=== PATIENT | female | born 1950 | race Caucasian/White ===

== ENCOUNTER 2017-01-14 17:00 | Observation (INO) | payer MEDICARE ==
[~2017-01-14] VITALS: Ht 167.6 cm; Wt 71.5 kg
[2017-01-14] MEDS ORDERED: Neostigmine 1 mg/mL 10 mL Inj ONE (18:05)
[2017-01-14] MEDS ORDERED: Glycopyrrolate 0.2 MG/ML 1mL Inj ONE (18:05)
[2017-01-14] MEDS ORDERED: Rocuronium 10 mg/mL 5 mL Inj ONE (18:05)
[2017-01-14] MEDS ORDERED: Dexamethasone 10 mg/mL Inj ONE (18:05)
[2017-01-14] MEDS ORDERED: MetoCLOpramide 5 mg/mL 2 mL Inj ONE (18:05)
[2017-01-14] MEDS ORDERED: Propofol 10,000 mCg/mL 20 mL Inj ONE (18:05)
[2017-01-14] MEDS ORDERED: fentaNYL-PF 50 mCg/mL 2 mL Inj ONE (18:05)
[2017-01-14] MEDS ORDERED: MetoCLOpramide 5 mg/mL 2 mL Inj IVPUSH PRN ×2 (18:25→23:00)
[2017-01-14] MEDS ORDERED: Ondansetron 2 mg/mL 2 mL Inj IVPUSH PRN ×2 (18:25→23:00)
[2017-01-14] MEDS ORDERED: Ampicillin-Sulbactam Inj 3,000 MG in 0.9% Sodium Chloride 100 ML IV ONE (18:25)
[2017-01-14] MEDS ORDERED: CITA10TA14 PO (18:35)
[2017-01-14] MEDS ORDERED: KELP1TAB2 PO (18:35)
[2017-01-14] MEDS ORDERED: OMEP20TA24 PO (18:35)
[2017-01-14] MEDS ORDERED: DIPH25CA6 PO (18:35)
[2017-01-14] MEDS ORDERED: CALCIUM (18:35)
[2017-01-14] MEDS ORDERED: MULT-1018 PO (18:35)
[2017-01-14] MEDS ORDERED: metroNIDAZOLE Inj 500 MG in IV Premix 1 EACH IV ONE (18:50)
[2017-01-14] MEDS ORDERED: levoFLOXacin Inj 750 MG in IV Premix 1 EACH IV ONE (18:50)
[2017-01-14] MEDS: HYDROmorphone 1 mg/mL Inj IVPUSH PRN ×2 (18:56→22:23)
[2017-01-14] MEDS: Dextrose 5% Lactated Ringer's 1,000 ML IV SCH (18:56)
--- NOTE | 2017-01-14 19:13 | HP ---
[address] [address] HISTORY AND PHYSICAL PATIENT: BHARGAV FOX : 1950 MR#: [id number] ADMIT: 01/14/2017 JOB ID: [id number] CHIEF COMPLAINT: Abdominal pain. HISTORY OF PRESENT ILLNESS: This patient is an otherwise healthy, 66-year-old woman who presents to Urgent Care today with increasing abdominal pain. Her pain began on Wednesday and at that time was periumbilical and associated with some mild abdominal bloating and nausea. Her nausea resolved and her pain gradually migrated over the next several days down to her right lower quadrant. Her pain today became intolerable. She denies fevers or chills. She denies diarrhea or dysuria. Her only other complaint is that she has been urinating frequently. She was seen in Urgent Care by Dalton Chavarria. She had a white blood cell count of 15. The remainder of her chemistry was normal. She had a CT scan of the abdomen and pelvis which showed findings consistent with nonperforated acute appendicitis with a dilated appendix to 1.3 cm with marked periappendiceal fat stranding. There was no abscess or phlegmon. Interestingly, she reports several episodes over the past year where she had similar pain, but that did not intensify quite as badly, and resolved without intervention. She wonders if she could have had other prior episodes of subclinical appendicitis. PAST MEDICAL HISTORY: GERD, depression. PAST SURGICAL HISTORY: Varicose vein surgery, nose surgery. MEDICATIONS: Include citalopram, omeprazole, multivitamin. ALLERGIES: 1. BEE STINGS. 2. AMOXICILLIN. 3. ASPIRIN. 4. IBUPROFEN. SOCIAL HISTORY: She is a nonsmoker. She drinks two glasses of wine per night. She denies illicit drug use. She is . FAMILY HISTORY: No family history of inflammatory bowel disease. REVIEW OF SYSTEMS: A 10-point review of systems is otherwise negative except as described in History of Present Illness. Specifically no history of blood in the stool or unplanned weight loss. PHYSICAL EXAMINATION: Body mass index 24.6. Vital signs are not yet recorded. General: She is resting in bed, in mild distress from pain. HEENT: Sclerae are anicteric. Mucous membranes are moist. Neck: No lymphadenopathy. Chest is clear to auscultation. Heart: Regular rate and rhythm. No murmurs. Abdomen is mildly distended, soft, but with significant tenderness to palpation in the right lower quadrant with positive rebound tenderness. There are no hernias. There are no palpable masses. Extremities: No edema. Neuro: No deficits. Psych: Affect is appropriate. LABORATORY DATA: Labs as in HPI. IMAGING: As in HPI. ASSESSMENT AND PLAN: A 66-year-old woman with acute nonperforated appendicitis. We have reviewed the pathophysiology of appendicitis. We have discussed nonoperative management versus laparoscopic appendectomy. She favors appendectomy. Technical aspects of surgery were discussed. Risks of surgery were discussed, including, but not limited to, bleeding, infection, conversion to open surgery, injury to other structures. She understands the postoperative course that will be dictated by the findings at the time of surgery. For now she will be placed on broad-spectrum antibiotics. Because of her amoxicillin allergy, she will be given levofloxacin and Flagyl. She will be kept n.p.o. until surgery which will be sometime tonight.
[2017-01-14 19:27] VITALS: BP 157/77; PULSE 53; RESP 16; O2SAT 97
[2017-01-14] MEDS ORDERED: 0.9% Sodium Chloride 250 ML ONE (19:40)
[2017-01-14] MEDS ORDERED: Lactated Ringer's 1,000 ML IV SCH (22:56)
[2017-01-14] MEDS ORDERED: Lactated Ringer's 500 ML IV PRN (22:56)
--- NOTE | 2017-01-14 22:56 | PCM.HPANE ---
Patient Data Surgeon Admitting Provider:Ubaldo Brown MD Attending Provider:Ubaldo Brown MD Primary Care Physician:Ubaldo Montgomery MD Other Provider:Alba Martinez Anesthesia Reason for Visit Acute Appendicitis Ht/WT & BMI Height (Feet): 5 Height (Inches): 6.00 Weight (Kilograms): 69.000 Body Mass Index 24.45 Allergies Coded Allergies: amoxicillin (Verified Allergy, Severe, Diarrhea, 01/14/17) aspirin (Verified Allergy, Severe, Rash, 01/14/17) SWELLING ibuprofen (Verified Allergy, Severe, Anaphylaxis, 01/14/17) SOB, SWELLING Uncoded Allergies: BEE STING (Allergy, Severe, Anaphylaxis, 01/14/17) SWELLING Past Anesthesia History Anesthesia History: Denies:: Anesthesia Reactions Diabetes History Hx Diabetes?: No Current Bedside Blood Glucose: 116 MRSA MRSA: No Medications Hypertension Medication: No Home Meds Incl Beta Alek: No Reported Medications Omeprazole Magnesium (Prilosec Otc)20 Mg Tablet.dr20 Mg PO DAILY PRN For Epigastric Distress #1 PKG Ref 0 01/14/17 Multivitamin (Multi Vitamin Daily)1 Each Tablet1 Tab PO DAILY PRN SUPPLEMENT 30 Days Ref 0 01/14/17 Kelp 1 Each Tablet1 Tab PO DAILY SUPPLEMENT 01/14/17 Citalopram Hydrobromide (Celexa)10 Mg [id number] Mg PO DAILY DEPRESSION Ref 0 01/14/17 [Calcium] No Conflict Check 01/14/17 diphenhydrAMINE HCl (Benadryl)25 Mg [id number] Mg PO Q4-6 HRS. PRN Insomnia Ref 0 01/14/17 History History of ENT Problems?: Yes HEENT History: Positive for:: Cataracts Denies:: Dysphagia Glaucoma Denture Type: None Teeth Condition: Within Normal Limits Hx of Heart Problems?: No Cardiovascular History: Denies:: AICD Abdominal Aortic Aneurism Atrial Fibrillation Cardiac Surgery Chest Pain Congestive Heart Failure Coronary Artery Disease Edema Heart Murmur Hypertension Irregular Heartbeat Pacemaker Peripheral Vascular Rheumatic Fever Thrombophlebitis Valvular Heart Disease Hx of Respiratory Problem?: No Respiratory History: Denies:: Asthma COPD Chest Surgery Cough Dyspnea Emphysema Hemoptysis Oxygen Administration Pneumonia Pulmonary Embolism Tuberculosis Use of C-PAP Machine Use of Inhalers / NEBS Hx Neurologic Problems?: No Hx of GI Problems?: Yes Hx of Problems?: Yes Genitourinary History: Positive for:: Kidney Stones Urinary Tract Infection Denies:: HX of Hemodialysis HX of Peritoneal Dialysis: No Female Hx: Denies:: Currently Endometriosis Pelvic Inflammatory Problems with Breasts? Hx Musculoskeletal Problems?: Yes Musculoskeletal History: Positive for:: Back Injury Denies:: Joint Replacement Musculoskeletal Trauma Hx of Psycho/Social Problems?: Yes Psycho Social History: Positive for:: Anxiety Hx Depression Denies:: Bipolar Disorder Suicide Attempt Hx Surgeries?: Yes (VEIN STRIPPING, NOSE FIXED) Hx Any Other Health Problems?: No Other History: Positive for:: Cancer (SKIN CANCER-3 SURGERIES ON HER FACE) Thyroid Disease (THYROID NODULES) Denies:: Hospitalization History Blood Transfusions: Positive for:: Accept Blood Products? Denies:: Blood Transfusions Hx Diabetes: NoBedside Blood Glucose: 116 Hx Alcohol Use: YesAlcoholic Drinks Per Day: A COUPLE OF GLASSES OF WINE EVERY NIGHTHx Substance Use: NoHave You Smoked inLast 12 mo: NoApprox How Many Cigarettes/day: 1 PACK/DAY Stop/Bang Treated for Sleep Apnea?: No Do You Have a CPAP Machine?: No S-Snoring: Do You Snore Loudly: No T-Tired: feel tired, fatigued: No O-Obsered: Observed not breath: No P-Blood Pressure: treated: Yes B- Body Mass Index > 35 kg/m2: No A- Age over 50: Yes N- Neck Large Circumference: No G- Gender Male: No SAGE Total Score: 1 SGAE Risk Assessment: Low Risk, <3 Yes Risk Assessment Category Category 1A: Patient has history of documented sleep apnea, and HAS NOT received any narcotic, sedative or anesthesia administration during this stay. Category 1B: Patient has history of documented sleep apnea, and HAS received any narcotic , sedative or anesthesia administration during this stay Category 2: Patient has SUSPECTED Obstructive Sleep Apnea, and HAS received any narcotic , sedative or anesthesia administration during this stay. Category 3: Patient has SUSPECTED Obstructive Sleep Apnea and HAS NOT received narcotic, sedative or anesthesia administration during this stay. Category 4: Outpatient in Procedural Areas with known sleep apnea or who screen positive for High Risk via the STOP/BANG questionnaire. Exam Exam Vital Signs Vital Signs Date Time Temp Pulse Resp B/P Pulse Ox O2 Delivery O2 Flow Rate FiO2 01/14/17 19:27 36.9 53 16 157/77 97 Room Air General Appearance: Oriented X3 HEENT/AIRWAY: MP 2 Lungs: Normal Air Movement Heart: Regular Rate/Rhythm Meds/Labs/Diagnostics Admission Meds Current Medications Dextrose/Lactated Ringer's 1,000 ml @ 100 mls/hr Q10H IV Last administered on 01/14/17 18:56; Start 01/14/17 at 18:25 Levofloxacin/ Dextrose 750 mg/ Premix 150 ml @ 100 mls/hr ONCE ONCE IV Last administered on 01/14/17 20:43; Start 01/14/17 at 18:50; Stop 01/14/17 at 20:19; Status DC Metronidazole/ Sodium Chloride 500 mg/Premix 100 ml @ 200 mls/hr ONCE ONCE IV Last administered on 01/14/17 19:37; Start 01/14/17 at 18:50; Stop 01/14/17 at 19:19; Status DC Sodium Chloride (Normal Saline) 250 ml @ ud STK-MED ONCE .ROUTE Last administered on 01/14/17 19:40; Start 01/14/17 at 19:40; Stop 01/14/17 at 19:41; Status DC Bedside Blood Glucose: 116 Plan Impression Patient chart reviewed, patient interviewed and anesthestic plan with risks, benefits, and alternatives discussed, and informed consent obtained. ASA Physical Status: ASA2 Mod Systemic Disease Anesthetic Plan: GA Bene/Risks/Altern/Consents: Yes HP Complete Prior to Induction: Yes Robert Pate MD Jan 14, 2017 22:56
[2017-01-14] MEDS ORDERED: EPHEDrine Sulfate 50 mg/mL Inj IVPUSH PRN (23:00)
[2017-01-14] MEDS ORDERED: HYDROmorphone 1 mg/mL Inj IVPUSH PRN (23:00)
[2017-01-14] MEDS ORDERED: Dexamethasone 4 mg/mL Inj IVPUSH PRN (23:00)
[2017-01-14] MEDS ORDERED: fentaNYL-PF 50 mCg/mL 2 mL Inj IVPUSH PRN (23:00)
[2017-01-14] MEDS ORDERED: Phenylephrine 10,000 mCg/mL Inj IVPUSH PRN (23:00)
[2017-01-14] MEDS ORDERED: Bupivacaine-MPF 0.5% W/EPI 30 mL Inj INFILTRATE ONE (23:37)
[2017-01-15] VITALS (12 sets, daily range): BP systolic 97–130; BP diastolic 47–89; PULSE 65–79; RESP 16–20; O2SAT 94–100
[2017-01-15] MEDS: Sodium Chloride LOK Flush 10 mL Syringe IVFLUSH SCH ×2 (00:30→08:26)
--- NOTE | 2017-01-15 00:32 | PCM.SURGOP ---
Surgical Operative Report Date of Service: Jan 15, 2017 Pre Operative Diagnosis Acute appendicitis Post Operative Diagnosis Acute suppurative appendicitis Procedure: Laparoscopic appendectomy Surgeon and Home Energy Auditor: Surgeon: Ubaldo Brown MD Assistants: Blake Junior MD PGY-3 Indication for Procedure 66-year-old woman who presented with abdominal pain since Wednesday which started at the umbilicus and migrated to the right lower quadrant. She was seen in urgent care where she had a white blood count of 15. A CT scan of the abdomen and pelvis showed a dilated appendix to 1.3 cm with periappendiceal fat stranding. On exam, she was markedly tender with rebound tenderness. After discussion of risks and benefits, she agreed to proceed with laparoscopic appendectomy. Findings: There was acute suppurative appendicitis with some slightly turbid fluid in the right lower quadrant, but no evidence of perforation. Procedure Details After smooth induction of general anesthesia, the patient was placed in the supine position with the left arm tucked. The abdomen was prepped and draped in wide sterile fashion. A procedural pause was performed according to the SCOAP checklist, and all were found to be in agreement. A curvilinear infraumbilical incision was made. Dissection was carried down with electrocautery until the midline fascia was incised vertically and the peritoneal cavity was entered without difficulty. Pneumoperitoneum was established. Two additional ports were placed under visualization. A 5 mm port was placed in the midline above the symphysis pubis, and a 12 mm port in the left lower quadrant, lateral to the inferior epigastric vessels. The patient was placed head down with the right side up. The small bowel was retracted. There was a small amount of slightly turbid fluid in the right lower quadrant. The appendix was visualized, which had some acute suppurative exudate. It was bluntly mobilized and retracted. A window was created at the base of the appendix in the mesoappendix. The appendiceal stump was then divided using an Endo TUYET stapler with a 45 mm blue load. The mesoappendix was divided with a vascular load. There was a small amount of bleeding from the mesoappendix after stapler firing, which was controlled with electrocautery. The appendix was placed into an Endo Catch bag. The right lower quadrant was irrigated and suctioned. The appendiceal stump was intact and the mesoappendix was hemostatic. The appendix was removed and passed off the field for permanent pathology. The 12 mm port was removed. The fascia of the 12 mm port site was closed using an inlet closure device with an 0 Vicryl suture. The remaining ports were removed under visualization and pneumoperitoneum was released. The fascia of the umbilical port site was closed with a simple 0 Vicryl suture. The skin incisions were closed using running 4-0 Monocryl subcutaneous stitches. Steri-Strips and sterile dressings were applied. At the end of the case all needle and sponge counts were correct 2. The patient was awakened from anesthesia without difficulty, and taken to the recovery room in satisfactory condition, having tolerated the procedure well. Complications There were no periprocedural complications identified. Surgical Specimen Removed: Yes Specimen sent to Pathology: Yes Surgical Specimen description: Appendix Anesthetic Plan: GA Grafts, Implants: None Output, Estimated Blood Loss: 50 Blood Administration during vincent: No Drains: None Catheters: None copies to: Ubaldo Montgomery MD, Joshua D MD Jan 15, 2017 00:32
--- NOTE | 2017-01-15 00:51 | PCM.ANEP1 ---
Post Anesthesia PACU Phase 1 Assessment Vital Signs Vital Signs Date Time Temp Pulse Resp B/P Pulse Ox O2 Delivery O2 Flow Rate FiO2 01/15/17 00:45 36.4 79 16 121/89 100 Simple Mask 8 01/14/17 19:27 36.9 53 16 157/77 97 Room Air Anesthetic Administered: GA Level of Alertness: Awake, talking Pain: No Pain Scale Score: 7 Nausea or Vomiting: No CV Function & Hydration Stable: Yes Airway Device: Oralpharangeal Airway Lungs: Normal Air Movement PACU Phase 2 Assessment Patient Instructions Provided: N/A Robert Pate MD Jan 15, 2017 00:51
[2017-01-15] MEDS: Dextrose 5% Lactated Ringer's 1,000 ML IV SCH (03:09)
[2017-01-15 05:36] LABS: BASOPHILS % (AUTO) 0 % (0-3); EOSINOPHILS % (AUTO) 0 % (0-5); MONOCYTES % (AUTO) 1.4 % (4-12); Mean Corpuscular Hemoglobin 30.6 pg (27.0-35.0); Mean Corpuscular Volume 92.8 fL (81-100); NEUTROPHILS % (AUTO) 93.6 % (40-74); Platelet Count 239 bil/L (150-400)
--- NOTE | 2017-01-15 10:10 | PCM.DISURG ---
Surgical Discharge Instruction Date of Service Jan 15, 2017 Dates of Hospitalization Date of Hospital Admission Jan 14, 2017 at 18:04 Providers Admitting Physician: Ubaldo Brown MD Primary Care Physician: Ubaldo Montgomery MD Attending Physician: Ubaldo Brown MD Discharge Diagnosis Discharge Diagnosis Primary Diagnosis: 1. Acute suppurative appendicitis 2. Status post Laparoscopic appendectomy Other Medical & Surgical History: 1. GERD 2. Depression. 3. Varicose vein surgery 4. Nose surgery. Post Operative diagnosis SAME ABOVE Diet Discharge Diet: No restrictions Activity Discharge Activity-General: Balance rest and activity, Activity as pain allows , No lifting >15 pounds for 2 weeks Dressing and Incisional Care Dressing Care: Allow Steri Stripes to fall off Hygiene: May shower, DO NOT soak incision under water Follow Up Plan Follow Up Plan Follow-up with physician assistant librarian in outpatient general surgery clinic in 2 weeks Follow-up Provider (F9): Korey Cazares PA-C Follow-up appointment: Weeks (2) Call your provider for: Fever, Chills, Increasing abdominal pain, Nausea, Vomiting, Wound redness, Increasing wound pain, Warmth to touch, Discharge @ incision, pus discharge Raji Villar PA-C Jan 15, 2017 10:10
[2017-01-15] MEDS ORDERED: POLY17PO6 PO (10:15)
[2017-01-15] MEDS ORDERED: DOCU250C2 PO (10:17)
[2017-01-15] MEDS ORDERED: OXYC5CAP4 PO (10:19)
--- NOTE | 2017-01-15 10:26 | PCM.PNSURG ---
Subjective Date of Service: Jan 15, 2017 Date of Service: Jan 15, 2017 Visit Information: Reason for Visit Acute Appendicitis Surgery/Surgery Date Post-Op Day # 1 status post laparoscopic appendectomy Date of Admission: Jan 14, 2017 at 18:04 Hospital Day # Subjective: The patient is feeling much better without significant complaints of pain, nausea, vomiting, and bowel movement or flatus; after tolerating regular medial. She is voiding normally and out of bed to the bathroom. Postop General: No Complaints Gastrointestinal: Good Appetite, No N/V Pain Management: PO, Good Pain Control, No or Minimal Pain Postop Activity: Ambulate without Assist Objective Vital Sign- Last 8 Hours Date Time Temp Pulse Resp B/P Pulse Ox O2 Delivery O2 Flow Rate FiO2 01/15/17 08:27 36.8 77 20 97/53 94 Room Air 01/15/17 04:27 36.8 69 16 114/67 96 Nasal Cannula 2.00 01/15/17 02:25 Supplement Oxygen Intake and Output- Last 8 Hour 01/15/17 Cumulative From/Thru 07:00 01/14/17 00:52 - 01/15/17 06:05 Intake Total 390 ml 1090 ml Output Total 850 ml 850 ml Balance -460 ml 240 ml Intake Oral 150 ml 150 ml IV Total 240 ml 940 ml Output Urine Total 800 ml 800 ml Estimated Blood Loss 50 ml 50 ml # Bowel Movements 0 0 General: Alert, Oriented X3, Cooperative, No Acute Distress Lungs: Clear to Auscultation Heart: Exam Unremarkable Abdomen: Soft, Appropriately tender, Non-distended, Normoactive bowel tones Extremities: Thigh&Calf Soft/Nontender Neuro: Normal Speech Result Diagram: 01/15/17 0450 01/15/17 0450 Assessment & Plan Impression Primary Diagnosis: 1. Acute suppurative appendicitis 2. Status post Laparoscopic appendectomy - POD # 1 & Doing Well. Other Medical & Surgical History: 1. GERD 2. Depression. 3. Varicose vein surgery 4. Nose surgery. Problems: Plan 1. Ambulate this morning with fall precautions. 2. Discharge home after lunch without flatus if doing well. Pain Management: 5 mg oxycodone PO when necessary VTE Prophylaxis: Raji Dias PA-C Jan 15, 2017 10:26
--- NOTE | 2017-01-15 10:28 | PCM.DC.SUR ---
Discharge Summary Date of Service: Jan 15, 2017 Date of Hospital Admission: Jan 14, 2017 at 18:04 Date of Operation(s): 01/14/2017 Date of Discharge: 01/15/2017 Diagnosis at Time of Discharge Primary Diagnosis: 1. Acute suppurative appendicitis 2. Status post Laparoscopic appendectomy Other Medical & Surgical History: 1. GERD 2. Depression. 3. Varicose vein surgery 4. Nose surgery. Problems: Operation Laparoscopic appendectomy Brief History and Physical: This patient is an otherwise healthy, 66-year-old woman who presented to Urgent Care yesterday with increasing abdominal pain. Her pain began on Wednesday and at that time was periumbilical and associated with some mild abdominal bloating and nausea. Her nausea resolved and her pain gradually migrated over the next several days down to her right lower quadrant. Her pain yesterday became intolerable. She denies fevers or chills. She denies diarrhea or dysuria. Her only other complaint is that she has been urinating frequently. She was seen in Urgent Care by Dalton Chavarria. She had a white blood cell count of 15. The remainder of her chemistry was normal. She had a CT scan of the abdomen and pelvis which showed findings consistent with nonperforated acute appendicitis with a dilated appendix to 1.3 cm with marked periappendiceal fat stranding. There was no abscess or phlegmon. Interestingly, she reports several episodes over the past year where she had similar pain, but that did not intensify quite as badly, and resolved without intervention. She wondered if she could have had other prior episodes of subclinical appendicitis. Hospital Course: The patient was admitted with a history, presentation, and workup consistent with acute suppurative appendicitis and underwent the above-mentioned operation without complication. See operative report for details of the procedure. The patient's postoperative course was uneventful. The patient was stable for discharge on postoperative day #1. At the time of discharge the patient was feeling well, with a significantly improved white blood cell count, voiding without difficulty, she was tolerating a normal diet without nausea or vomiting , it was preferred that she has flatus, she was ambulating without difficulty, with clean, dry, and intact surgical incisions without signs of infection, inflammation, and/or hematoma. We discussed all the postoperative care and medication instructions, follow-up, and when to seek immediate medical attention. The patient verbalized understanding and that all of her questions were answered. She was given prescriptions for laxatives, stool softeners, and low-dose by mouth narcotic analgesics. Disposition: The patient was discharged home in stable condition on postoperative day #1 Follow-up Plan: Follow-up with physician assistant general manager in outpatient general surgery clinic in 2 weeks. ([Calcium]) (Reported) Citalopram Hydrobromide (Celexa) 10 Mg Tablet 10 MG PO DAILY (Reported) Docusate Sodium (Docusate Sodium) 250 Mg Capsule 250 MG PO BID Kelp (Kelp) 1 Each Tablet 1 TAB PO DAILY (Reported) Multivitamin (Multi Vitamin Daily) 1 Each Tablet 1 TAB PO DAILY PRN PRN SUPPLEMENT (Reported) Omeprazole Magnesium (Prilosec Otc) 20 Mg Tablet.dr 20 MG PO DAILY PRN PRN For Epigastric Distress (Reported) Polyethylene Glycol 3350 (Miralax) 17 Gm Powd.pack 17 GM PO DAILY PRN PRN For Constipation diphenhydrAMINE HCl (Benadryl) 25 Mg Capsule 25 MG PO Q4-6 HRS. PRN PRN Insomnia (Reported) oxyCODONE (oxyCODONE) 5 Mg Capsule 0.5-1 TABLET PO QID PRN PRN For Severe Pain Discharge Medications: SEE ABOVE copies to: Ubaldo Montgomery MD, Scott PA-C Jan 15, 2017 10:28
--- NOTE | 2017-01-19 15:36 | PATH ---
SURGICAL PATHOLOGY Attending Physician:Kody Zhong CASE STATUS: Signed Out PATIENT NAME: BHARGAV FOX PID: [id number] : 1950 DATE COLLECTED:01/15/2017 16:55 SPECIMEN: Appendix CLINICAL HISTORY: ACUTE APPENDICITIS 1). APPENDIX FINAL DIAGNOSIS: 1.APPENDIX, APPENDECTOMY: GOBLET CELL CARCINOID, PLEASE SEE CAP SUMMARY DATA BELOW. ACUTE SUPPURATIVE APPENDICITIS WITH SEROSITIS. CAP SUMMARY DATA Specimen: Appendix. Procedure: Appendectomy. Tumor Site: Proximal half of appendix, base of appendix uninvolved by tumor. Tumor Size: Greatest dimension: 8 mm. Histologic Type: Goblet cell carcinoid. Histologic Grade: Grade 3 Microscopic Tumor Extension: Tumor invades through the muscularis propria into the mesoappendix, but does not extend to the serosal surface. Margins: Proximal margin: Involved by goblet cell carcinoid. Mesenteric margin: Uninvolved by goblet cell carcinoid. Lymph/vascular invasion: Not identified. Tumor Deposits: Not identified. Perineural Invasion: Not identified. Pathologic Staging (AJCC 7th Edition, 2010). Primary Tumor: pT3. Regional Lymph Nodes: pNX. Additional Pathologic Findings: Appendicitis with serositis. Ancillary Studies: Ki-67: 40%. [id number] NOTE: The high histologic grade is based on mitotic count and increased Ki-67 proliferative rate. 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 Due to the interesting histologic appearance and important clinical consequences, this case will be forwarded to the [facility] for a second opinion. Dr. Austin discussed the findings with Dr. Brown on 01/19/2017. As part of routine quality assurance inspector, this case was also reviewed by Dr. Pringle, who agrees with the diagnosis. GROSS DESCRIPTION: The specimen is received in one formalin filled container labeled with the patient's name, sublabeled "appendix" and consists of a dorado appendix measuring 6.0 x 1.2 x 1.2 CM. The visceral surface is light dorado, smooth and glistening. There is a large amount of attached mesoappendix. Sectioning reveals a thickened wall (0.2-0.3 CM). The lumen contains a light dorado-brown and light dorado friable material. Business Architect sections including the tip sectioned longitudinally, proximal margin inked blue, and random cross sections are submitted in one cassette. 01/15/2017DC MICRO DESCRIPTION: Immunohistochemical stains were performed to characterize the cells of interest. All control stains showed appropriate reactivity. Results: Synaptophysin:Uniformly positive Chromogranin:Uniformly positive Ki-67:Positive in 40% of cells Interpretation: Consistent with a neuroendocrine immunophenotype. This test was developed and its performance characteristics determined by [employer]. It has not been cleared or approved by the U. S. Food and Drug Administration. The FDA has determined that such clearance or approval is not necessary. This test is used for clinical purposes. It should not be regarded as investigational or for research. ICD-9 CODES: CPT CODES: 1: 26746, 35467, 42516, 26064 Electronically Signed Out Bren Austin MD [facility] [address], [place] [address] Technical component performed at [facility], [address], [place], [address]
== END 2017-01-15 15:01 | disposition home or self-care (01) ==
LOC: OSC 18:04
PROVIDERS: ADMIT Student in an Organized Health Care Education/Training Program; ATTEND Student in an Organized Health Care Education/Training Program
DX: C7A.020 Malignant carcinoid tumor of the appendix (principal); K35.89 Other acute appendicitis; E04.1 Nontoxic single thyroid nodule; M19.90 Unspecified osteoarthritis, unspecified site; K58.9 Irritable bowel syndrome, unspecified; M41.9 Scoliosis, unspecified; K21.9 Gastro-esophageal reflux disease without esophagitis; F32.9 Major depressive disorder, single episode, unspecified; Z79.890 Hormone replacement therapy